=== PATIENT | male | born 1980 | race Caucasian/White ===

== ENCOUNTER 2019-03-07 12:40 | Emergency (ER) | payer MEDICAID ==
[~2019-03-07] VITALS: Ht 170.2 cm; Wt 80.3 kg
[2019-03-07 12:47] VITALS: BP 146/92; Ht 170.2 cm; Wt 80.3 kg
== END 2019-03-07 14:39 | disposition home or self-care (01) ==
LOC: ED 12:40
DX: J06.9 Acute upper respiratory infection, unspecified (principal)
CPT/HCPCS: J1885